=== PATIENT | female | born 1995 | race Caucasian/White ===

== ENCOUNTER 2025-09-13 12:28 | Emergency (ER) | payer BC, SELFPAY ==
[2025-09-13 12:31] VITALS: BP 148/92
--- NOTE | 2025-09-13 14:10 | ED.GENMED ---
History of Present Illness
General
Chief Complaint: Rectal Bleeding
Time Seen by Provider: 09/13/25 12:54
History of Present Illness
History of Present Illness:
Patient is a 30-year-old female with past medical history of epilepsy who presents complaining of painless rectal bleeding that began this morning while she was straining to have a bowel movement. Reports he has been constipated more often than not
lately and has been feeling increasingly bloated. Does have a history of hemorrhoids since her children were born and has previously seen GI for this. Is not currently using any [id number] creams. Denies any lightheadedness or dizziness.
Past History
Past History
ED Past Medical History: Seizures
Social History
Tobacco: Non-smoker
Phy Exam
General Physical Exam
General Presentation: well appearing and no apparent distress
General Skin: warm and dry
General Habitus: normal
General Mental: alert
General Hydration: appears well hydrated
ENT Exam
ENT Exam: EOMI, pharynx normal, neck supple and normocephalic
Eye Exam
Eye Exam: PERRL, cornea clear and conjunctiva normal
Cardiovascular Exam
Cardiovascular Exam: regular rate/rhythm, no edema, no murmur and normal peripheral pulses
Pulmonary Exam
Pulmonary Exam: lungs clear, no respiratory distress, no rales, no crackles, no rhonchi, no stridor, no wheezing and no cough
Gastrointestinal Exam
Gastrointestinal Exam: normal bowel sounds, non tender, soft, no organomegaly, no pulsatile mass and non distended
Abdominal Scars: vertical midline
Rectal Exam: hemorrhoids (External hemorrhoids with dried blood, internal hemorrhoids with small amount of red blood.) and other (Fissure)
Neurological Exam
Neurological Exam: alert, oriented x3, no motor deficits and speech normal
Musculoskeletal Exam
Musculoskeletal Exam: full ROM and no edema
Skin Exam
Skin Exam: normal color, warm/dry, no rash and no petechia
Psychiatric Exam
Psychiatric Exam: normal mood/affect
Course
Vital Signs
Initial and Last Documented VS:
Initial Vital Signs
Temp Pulse Resp BP Pulse Ox
36.8 C 92 19 148/92 98
09/13/25 12:31 09/13/25 12:31 09/13/25 12:31 09/13/25 12:31 09/13/25 12:31
Last Documented Vital Signs
Temp Pulse Resp BP Pulse Ox
36.8 C 92 19 148/92 98
09/13/25 12:31 09/13/25 12:31 09/13/25 12:31 09/13/25 12:31 09/13/25 12:31
MDM/Problems Addressed
Differential Diagnosis Includes:
No evidence of active bleeding on exam. His rectal bleeding is likely attributed to her known internal hemorrhoids and anal fissure that is present on exam. She reported being constipated and straining to have bowel movements. Discussed
importance of obtaining good oral hydration and bowel regimen to avoid constipation. Discussed using [id number] Preparation H and sitz bath's. Hemorrhoids do not appear thrombosed and she does have follow-up already established. Portal
measures discussed in detail. All questions answered. Return precautions discussed.
*Pulse Oximetry
SaO2: 98
Oxygen Mode of Delivery: Room air
Patient hypoxic: no
*Critical Care Note
Total Time (30-74mins, 75-104mins- exclusive of procedures): Not Applicable
ED Attending Note
-
Portions of this chart may have been created with voice recognition software.� Occasional wrong word or��sound alike� substitutions may have occurred due to the inherent limitations of voice recognition software.
Discharge Plan
Departure
Patient Disposition: Home (Routine Discharge)
Date of Disposition: 09/13/25
Time of Disposition: 13:22
Patient with high blood pressure during this ER visit?: No
Discharge Problem:
Internal bleeding hemorrhoids, External hemorrhoid, Anal fissure, Constipation
Instructions: Anal Fissure (DC), Constipation in adults - ED (DC), Hemorrhoids - ED (DC)
Prescriptions:
No Action
acetaminophen 325 mg Tablet
650 mg PO Q4HPRN PRN (Reason: mild pain) Qty: 20 0RF
ibuprofen 600 mg Tablet
600 mg PO Q6HPRN PRN (Reason: moderate pain/cramps) Qty: 20 0RF
Activity Restrictions/Additional Instructions:
Follow-up with GI or colorectal surgery. Counter stool softener such MiraLAX to avoid constipation as these can worsen hemorrhoids.
Interventions
Interventions:
*General Assessment Last Done: 09/13/25 12:34
*Neglect/Abuse Screening Last Done: 09/13/25 12:34
*ED COVID-19 Vaccine History Last Done: 09/13/25 12:34
*ED Influenza Vaccine History Last Done: 09/13/25 12:34
[facility] Fall Risk Assessment Tool Last Done: 09/13/25 13:00
*Risk Screen - Suicide (C-SSRS) Last Done: 09/13/25 12:34
*Nursing Disposition Last Done: 09/13/25 13:55
AD-Boteyn-Heolfglxbo Assessment Last Done: 09/13/25 13:52
ED- Cardiac Assessment Last Done: 09/13/25 13:52
ED- Pulmonary Assessment Last Done: 09/13/25 13:52
Discharge Date and Time
Discharge Date/Time: 09/13/25 13:55
Print Language: [id number]
== END 2025-09-13 13:55 | disposition home or self-care (01) ==
LOC: EMR 12:28
PROVIDERS: EMERGENCY PHYSICIAN Emergency Medicine; FAMILY PHYSICIAN Internal Medicine
DX: K64.8 Other hemorrhoids (principal); K64.4 Residual hemorrhoidal skin tags; K60.2 Anal fissure, unspecified; K59.00 Constipation, unspecified
CPT/HCPCS: 99282